=== PATIENT | male | born 1995 | race Hispanic/Latino ===

== ENCOUNTER 2018-04-07 20:59 | Emergency (ER) | payer OTHER ==
[2018-04-07] MEDS ORDERED: IOHEXOL 350 MG/ML 100ML INFUS..BTL IV ONE (21:07)
[2018-04-07] MEDS ORDERED: KETOROLAC TROMETHAMINE 30MG/ML ONE (22:03)
[2018-04-07 22:07] LABS: APPEARANCE,URINE Clear (CLEAR); BILIRUBIN,URINE Negative (NEGATIVE); COLOR,URINE Yellow (YELLOW); GLUCOSE, URINE (UA) Negative (NEGATIVE); KETONES,URINE Trace mg/dL (NEGATIVE); LEUKOCYTE ESTERASE ,URINE Negative (NEGATIVE); NITRATE,URINE Negative (NEGATIVE); OCCULT BLOOD,URINE Negative (NEGATIVE); PH,URINE 6.5 (5.0-8.0); PROTEIN,URINE POS 2+ (NEGATIVE)
[2018-04-07 22:41] LABS: BACTERIA,URINE Few /HPF (None Seen); MUCUS,URINE Rare LPF (None Seen); RBC,URINE 0-1 /HPF (0-1); SQUAMOUS EPITHELIAL CELL,UR 0-2 /HPF (0-2)
[2018-04-07 22:42] LABS: FINE GRANULAR CASTS,URINE 0-2 /LPF (None Seen)
== END 2018-04-08 00:20 | disposition home or self-care (01) ==
LOC: EEVIPCON 20:59 → EDH 20:59 → EDBD 20:59 → EDH 04-08 00:20
DX: S30.813A Abrasion of scrotum and testes, initial encounter (principal); S06.9X9A Unspecified intracranial injury with loss of consciousness of unspecified duration, initial encounter; S19.9XXA Unspecified injury of neck, initial encounter; W17.89XA Other fall from one level to another, initial encounter; Y93.31 Activity, mountain climbing, rock climbing and wall climbing; Y92.89 Other specified places as the place of occurrence of the external cause; Y99.8 Other external cause status
CPT/HCPCS: 70450; 71045; 72125; 72170; 81001; 96374; 99285; J1885; Q9967